=== PATIENT | female | born 1975 | race Two or more races ===

== ENCOUNTER 2019-04-06 05:35 | Day surgery (SDC) | payer OTHER ==
[~2019-04-06 05:35] MED LIST: IRON1TAB4 PO; SYNTHROID100 MCG PO
[2019-04-06] MEDS ORDERED: OXYC1TAB9 PO (08:47)
[2019-04-06] MEDS ORDERED: ASA325 MG PO (08:47)
[2019-04-06] MEDS ORDERED: ZITHROMAX500 MG PO (08:47)
[2019-04-06] MEDS ORDERED: IRON1TAB4 PO (08:47)
== END 2019-04-06 11:04 | disposition home or self-care (01) ==
LOC: CIR.AMB 05:35 → AMB-ENDOS 14:30 → CIR.AMB 14:30
DX: N93.8 Other specified abnormal uterine and vaginal bleeding (principal)

== ENCOUNTER 2019-08-18 05:49 | Day surgery (SDC) | payer OTHER ==
[~2019-08-18 05:49] MED LIST changes: +ASA325 MG PO; +OXYC1TAB9 PO; +ZITHROMAX500 MG PO
== END 2019-08-18 15:55 | disposition home or self-care (01) ==
LOC: CIR.AMB 05:49
PROVIDERS: Plastic Surgery
PROC: 0J073ZZ Alteration of Back Subcutaneous Tissue and Fascia, Percutaneous Approach (ICD-10-PCS; 2019-08-18)
PROC: 0WW Anatomical Regions, General, Revision (ICD-10-PCS; principal; 2019-08-18 07:00)
DX: L91.0 Hypertrophic scar (principal); M62.08 Separation of muscle (nontraumatic), other site